=== PATIENT | male | born 1990 | race Two or more races ===

== ENCOUNTER 2022-07-09 10:45 | Emergency (ER) | payer SELFPAY ==
[~2022-07-09] VITALS: Ht 180.3 cm; Wt 118.0 kg
[2022-07-09 11:33] VITALS: BP 143/77
[2022-07-09] MEDS ORDERED: IBUP800T27 PO (12:24)
[2022-07-09] MEDS ORDERED: BACL10TA PO (12:24)
== END 2022-07-09 12:27 | disposition home or self-care (01) ==
LOC: ER 10:45
DX: S16.1XXA Strain of muscle, fascia and tendon at neck level, initial encounter (principal); S39.012A Strain of muscle, fascia and tendon of lower back, initial encounter; Z79.1 Long term (current) use of non-steroidal anti-inflammatories (NSAID); Z79.899 Other long term (current) drug therapy; V43.52XA Car driver injured in collision with other type car in traffic accident, initial encounter; Y93.89 Activity, other specified; Y92.410 Unspecified street and highway as the place of occurrence of the external cause; Y99.8 Other external cause status
CPT/HCPCS: 72040; 72100